=== PATIENT | female | born 1955 | race Caucasian/White ===

== ENCOUNTER 2023-06-10 23:01 | Emergency (ER) | payer BC ==
[2023-06-10 23:15] VITALS: TEMP 97.9
[2023-06-11] MEDS ORDERED: MORPHINE SULFATE 4 MG/ML SYRINGE IM STA (00:18)
[2023-06-11] MEDS ORDERED: MORPHINE SULFATE 2 MG/ML SYRINGE IM ONE (00:35)
--- NOTE | 2023-06-11 01:13 | XR ---
EXAM: XR Right Wrist Complete, 3 Views CLINICAL HISTORY: ITS.REASON XR Reason: pain s/p fall r/o fx TECHNIQUE: Frontal, lateral and oblique views of the right wrist. COMPARISON: No relevant prior studies available. FINDINGS: Bones/joints: Comminuted fracture of distal metaphysis and epiphysis of radius, extending to articular surface with mild impaction and moderate volar apex angulation. Largest fracture fragment is dorsally displaced by about 1 cm. Ulnar styloid is fractured with 3 mm distal displacement. 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 Soft tissues: Associates soft tissue swelling without gas. No radiopaque foreign body. IMPRESSION: 1. Comminuted fracture of distal metaphysis and epiphysis of radius, extending to articular surface with mild impaction and moderate volar apex angulation. 2. Ulnar styloid is fractured with 3 mm distal displacement.
--- NOTE | 2023-06-11 01:16 | ED ---
General Adult HPI - General Source: patient Mode of arrival: ambulatory Limitations: no limitations <Houston Montalvo - Last Filed: 06/11/23 01:26> <Dc Joel - Last Filed: 06/11/23 01:31> - General Chief complaint: Extremity Injury, Upper Stated complaint: Right wrist injury,fall Time Seen by Provider: 06/10/23 23:36 - History of Present Illness Initial comments: 67-year-old female presenting to the ED with a chief complaint of right wrist injury. Patient states that she was bending down to do a chore while in her barn when she states that she lost her balance and fell backwards. In the process, states that she attempted to catch herself with her right wrist and now notes pain of the right wrist. No head injury at this time. No other injuries at this time. Patient reports pain currently a 7 out of 10 in severity. No other complaints. (Houston Montalvo) - Related Data Previous Rx's Medication Instructions Recorded HYDROcodone/APAP 7.5-325MG [[place] 1 tab PO Q6HR PRN 3 Days #12 tab 06/11/23 7.5-325] Allergies Allergy/AdvReac Type Severity Reaction Status Date / Time No Known Allergies Allergy Verified 06/10/23 23:10 Review of Systems ROS Other: All systems not noted in ROS Statement are negative. <Houston Montalvo - Last Filed: 06/11/23 01:26> ROS Other: All systems not noted in ROS Statement are negative. <Dc Joel - Last Filed: 06/11/23 01:31> ROS Statement: Those systems with pertinent positive or pertinent negative responses have been documented in the HPI. Past Medical History Past Medical History: No Reported History History of Any Multi-Drug Resistant Organisms: None Reported Past Surgical History: No Surgical Hx Reported Past Psychological History: No Psychological Hx Reported Smoking Status: Current every day smoker Past Alcohol Use History: Occasional Past Drug Use History: None Reported <Huoston Montalvo - Last Filed: 06/11/23 01:26> General Exam Limitations: no limitations General appearance: alert, in no apparent distress Eye exam: Present: normal appearance Neck exam: Present: normal inspection Respiratory exam: Present: normal lung sounds bilaterally Cardiovascular Exam: Present: normal rhythm, tachycardia GI/Abdominal exam: Present: soft Extremities exam: Present: other (Obvious deformity of right upper extremity at the wrist with step-off. Radial pulses 2+. Sensation at the fingertips intact. Able to flex and extend fingers with no difficulties.) Neurological exam: Present: alert, oriented X3 Skin exam: Present: warm, dry <Houston Montalvo - Last Filed: 06/11/23 01:26> Course Vital Signs 06/10/23 23:08 Temperature 97.9 F Pulse Rate 108 H Respiratory 20 Rate Blood Pressure 154/98 O2 Sat by Pulse 94 L Oximetry Procedures - Orthopedic Splinting/Casting Injury #1 Side: right Upper Extremity Injury Location: wrist Upper Extremity Immobilizer: volar splint <Houston Montalvo - Last Filed: 06/11/23 01:26> - Orthopedic Fracture Reduction Fracture #1 Consent Obtained: verbal consent Side: right Fracture Reduction Location: radius Analgesia: none Technique: direct manipulation, traction/counter-traction Post-Reduction Neuro Exam: intact Post-Reduction Vascular Exam: intact Splint Applied: Yes Patient Tolerated Procedure: well <WisamDc - Last Filed: 06/11/23 01:31> - Orthopedic Splinting/Casting Injury #1 Additional Comments: Neurovascular intact after splint placement with good capillary refill and sensation. Able to move fingers without difficulties. (Houston Montalvo) Medical Decision Making <Houston Montalvo - Last Filed: 06/11/23 01:26> - Medical Decision Making Was pt. sent in by a medical professional or institution (, PA, CLEANING CREW MEMBER, urgent care, hospital, or shelter...) When possible be specific @ -No Did you speak to anyone other than the patient for history (EMS, parent, family, police, friend...)? What history was obtained from this source @ -No Did you review nursing and triage notes (agree or disagree)? Why? @ -I reviewed and agree with nursing and triage notes Were old charts reviewed (outside hosp., previous admission, EMS record, old EKG, old radiological studies, urgent care reports/EKG's, shelter records)? Report findings @ -No old charts were reviewed Differential Diagnosis (chest pain, altered mental status, abdominal pain women, abdominal pain men, vaginal bleeding, weakness, fever, dyspnea, syncope, headache, dizziness, GI bleed, back pain, seizure, CVA, palpatations, mental health, musculoskeletal)? @ -Differential Musculoskeletal Muscular strain, contusion, ligament sprain, fracture, arthritis, septic arthritis, bursitis, cellulitis, muscle spasm, nerve compression, DVT, arterial occlusion, herpes zoster, electrolyte abnormality, tumor.... This is not meant to be in all inclusive list EKG interpreted by me (3pts min.). @ -None X-rays interpreted by me (1pt min.). @ -X-ray of the right wrist interpreted by me showing impacted distal radius fracture. CT interpreted by me (1pt min.). @ -None done U/S interpreted by me (1pt. min.). @ -None done What testing was considered but not performed or refused? (CT, X-rays, U/S, labs)? Why? @ -None What meds were considered but not given or refused? Why? @ -None Did you discuss the management of the patient with other professionals (professionals i.e. , PA, CLEANING CREW MEMBER, lab, RT, psych nurse, social economist, magnetizer, teacher, sewage reticulation drafting officer, director of casework)? Give summary @ -No Was smoking cessation discussed for >3mins.? @ -No Was critical care preformed (if so, how long)? @ -No Were there social determinants of health that impacted care today? How? (Homelessness, low income, unemployed, alcoholism, drug addiction, transportation, low edu. Level, literacy, decrease access to med. care, longterm, rehab)? @ -No Was there de-escalation of care discussed even if they declined (Discuss DNR or withdrawal of care, Hospice)? DNR status @ -No What co-morbidities impacted this encounter? (DM, HTN, Smoking, COPD, CAD, Cancer, CVA, ARF, Chemo, Hep., AIDS, mental health diagnosis, sleep apnea, morbid obesity)? @ -None Was patient admitted / discharged? Hospital course, mention meds given and route, prescriptions, significant lab abnormalities, going to OR and other pertinent info. @ -Discharge 67-year-old female presenting status post mechanical fall now with right wrist pain. X-ray did show fracture of the distal radius. Splint was placed. Patient neurovascularly intact after splint placement. Patient discharged home with starter pack of [place] and prescription of [place]wood with referral to see orthopedics. Discharged home in stable condition. Discussed return precautions with patient who verbalized agreement. Undiagnosed new problem with uncertain prognosis? @ -No Drug Therapy requiring intensive monitoring for toxicity (Heparin, Nitro, Insulin, Cardizem)? @ -No Were any procedures done? @ -No Diagnosis/symptom? @ -Distal radius fracture, right Acute, or Chronic, or Acute on Chronic? @ -Acute Uncomplicated (without systemic symptoms) or Complicated (systemic symptoms)? @ -Uncomplicated Side effects of treatment? @ -No Exacerbation, Progression, or Severe Exacerbation? @ -No Poses a threat to life or bodily function? How? (Chest pain, [place], [place], pneumonia, PE, COPD, DKA, ARF, appy, cholecystitis, CVA, Diverticulitis, Homicidal, Suicidal, threat to staff... and all critical care pts) @ -No (Houston Montalvo) Disposition Is patient prescribed a controlled substance at d/c from ED?: Yes When asked, does pt state using other controlled substances?: No If prescribed controlled substance>3 days was MAPS reviewed?: Prescribed <3 Days Time of Disposition: 01:25 <Houston Montalvo - Last Filed: 06/11/23 01:26> <Dc Joel - Last Filed: 06/11/23 01:31> Clinical Impression: Right wrist fracture Disposition: HOME SELF-CARE Condition: Good Instructions (If sedation given, give patient instructions): Wrist Fracture in Adults (ED) Prescriptions: HYDROcodone/APAP 7.5-325MG [[place] 7.5-325] 1 tab PO Q6HR PRN 3 Days #12 tab PRN Reason: Pain Referrals: Kyrie Martines MD [Primary Care Provider] - 1-2 days
[2023-06-11] MEDS ORDERED: ACET/COD 300 MG/30 MG STARTER PACK 6 TAB BTL PO STA (01:27)
[2023-06-11 01:53] VITALS: BP 123/78; PULSE 80; RESP 16
== END 2023-06-11 01:51 | disposition home or self-care (01) ==
LOC: EC 23:01
DX: S52.501A Unspecified fracture of the lower end of right radius, initial encounter for closed fracture (principal); S52.611A Displaced fracture of right ulna styloid process, initial encounter for closed fracture; F17.200 Nicotine dependence, unspecified, uncomplicated; W19.XXXA Unspecified fall, initial encounter
CPT/HCPCS: 73110; 25605; 99284; 96372 ×2; J2270 ×2

== ENCOUNTER → 2023-06-16 | Outpatient (CLI) | payer BC ==
--- NOTE | 2023-06-16 09:55 | CT ---
EXAMINATION TYPE: CT wrist RT wo con DATE OF EXAM: 06/16/2023 COMPARISON: Radiograph 06/11/2023 HISTORY: 67-year-old female S52.571A FX RIGHT RADIUS, Fall, pre op TECHNIQUE: Contiguous axial scanning of the right wrist without IV contrast. Coronal and sagittal rec onstructions performed. 3-D reconstructions generated on a dedicated independent workstation. CT DLP: 99.5 mGycm Automated exposure control for dose reduction was used. FINDINGS: Severely comminuted fractured distal radial metaphysis and epiphysis with intra-articular extension i nto both radiocarpal and distal radioulnar joints. A bony gap and secondary articular surface disruption within the mid radial articular surface of the radiocarpal joint measures up to 6 mm AP and 8 mm wide. There is impaction of up to 7 mm and displacement of fragments up to 6 mm especially along the volar aspect. Secondary mild dorsal angulation. Additional nondisplaced fracture through the base of the ulnar styloid process. There is some cystic change at the ulnar proximal aspect of the lunate bone that may reflect underlyi ng ulnar impaction syndrome. Congenital carpal coalition of the hamate, capitate, and trapezoid bones. Moderate degenerative change first CMC joint and mild at the triscaphe joint. IMPRESSION: 1. SEVERELY COMMINUTED FRACTURE DISTAL RADIAL METAPHYSIS AND EPIPHYSIS. INTRA-ARTICULAR EXTENSION INT O BOTH RADIOCARPAL AND DISTAL RADIAL ULNAR JOINTS. 7 MM OF IMPACTION. DISPLACEMENT OF FRAGMENTS UP TO 6 MM ESPECIALLY AT THE VOLAR ASPECT. SECONDARY MILD DORSAL ANGULATION. 2. DISRUPTION OF THE MID RADIOCARPAL ARTICULAR SURFACE SECONDARY TO A BONY GAP MEASURING 8 X 6 MM. 3. ADDITIONAL NONDISPLACED FRACTURE THROUGH THE BASE OF THE ULNAR STYLOID PROCESS. 4. 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 5. CONGENITAL CARPAL COALITION INVOLVING THE TRAPEZOID, CAPITATE, AND HAMATE BONES. 6. 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
== END | disposition home or self-care (01) ==
LOC: RADCTMAIN 09:03
PROVIDERS: ATTEND Orthopaedic Surgery Hand Surgery
DX: S52.121A Displaced fracture of head of right radius, initial encounter for closed fracture (principal); S52.614A Nondisplaced fracture of right ulna styloid process, initial encounter for closed fracture; M19.041 Primary osteoarthritis, right hand

== ENCOUNTER 2023-07-22 21:17 | Inpatient (IN) | payer BC, MEDICARE ==
--- NOTE | 2023-07-22 21:51 | ED ---
General Adult HPI - General Chief complaint: Abdominal Pain Stated complaint: abd pain Time Seen by Provider: 07/22/23 21:26 Source: patient, RN notes reviewed, old records reviewed Mode of arrival: ambulatory Limitations: no limitations - History of Present Illness Initial comments: 68-year-old female presenting with lower abdominal pain. Pain began abruptly just prior to arrival. Patient states that several weeks ago she had a similar pain which resolved without treatment or evaluation. She denied dysuria. She states she was able to empty her bladder completely. No fever. No vomiting. She states she had a normal bowel movement. - Related Data Previous Rx's Medication Instructions Recorded HYDROcodone/APAP 7.5-325MG [[place] 1 tab PO Q6HR PRN 3 Days #12 tab 06/11/23 7.5-325] Allergies Allergy/AdvReac Type Severity Reaction Status Date / Time No Known Allergies Allergy Verified 06/10/23 23:10 Review of Systems ROS Statement: Those systems with pertinent positive or pertinent negative responses have been documented in the HPI. ROS Other: All systems not noted in ROS Statement are negative. Past Medical History Past Medical History: No Reported History History of Any Multi-Drug Resistant Organisms: None Reported Past Surgical History: No Surgical Hx Reported Past Psychological History: No Psychological Hx Reported Smoking Status: Current every day smoker Past Alcohol Use History: Occasional Past Drug Use History: None Reported General Exam Limitations: no limitations General appearance: alert, in no apparent distress Head exam: Present: atraumatic, normocephalic Eye exam: Present: normal appearance, PERRL ENT exam: Present: normal exam Neck exam: Present: normal inspection. Absent: tenderness, meningismus Respiratory exam: Present: normal lung sounds bilaterally, respiratory distress Cardiovascular Exam: Present: regular rate, normal rhythm GI/Abdominal exam: Present: distended, tenderness (Bilateral lower and suprapubic tenderness) Neurological exam: Present: alert, oriented X3, CN II-XII intact. Absent: motor sensory deficit Psychiatric exam: Present: normal affect, normal mood Skin exam: Present: warm, dry, intact. Absent: cyanosis, diaphoretic Course Vital Signs 07/22/23 07/23/23 07/23/23 21:18 00:08 01:38 Temperature 97.5 F L Pulse Rate 89 108 H 118 H Respiratory 18 18 18 Rate Blood Pressure 138/85 129/77 128/82 O2 Sat by Pulse 97 95 95 Oximetry Medical Decision Making - Medical Decision Making Was pt. sent in by a medical professional or institution (SHANNA Omer, ULTRASONIC HAND SOLDERER, urgent care, hospital, or [facility]...) When possible be specific @ -No Did you speak to anyone other than the patient for history (EMS, parent, family, police, friend...)? What history was obtained from this source @Patient's daughter Did you review nursing and triage notes (agree or disagree)? Why? @ -I reviewed and agree with nursing and triage notes Were old charts reviewed (outside hosp., previous admission, EMS record, old EKG, old radiological studies, urgent care reports/EKG's, [facility] records)? Report findings @ -No old charts were reviewed Differential Diagnosis (chest pain, altered mental status, abdominal pain women, abdominal pain men, vaginal bleeding, weakness, fever, dyspnea, syncope, headache, dizziness, GI bleed, back pain, seizure, CVA, palpatations, mental health, musculoskeletal)? @Differential Abdominal Pain Women: Appendicitis, Cholecystitis, diverticulosis, ischemic bowel, pancreatitis, hepatitis, UTI, gastroenteritis, AAA, incarcerated hernia, bowel obstruction, constipation, inflammatory bowel, hepatitis, peptic ulcer disease, splenic infarction, perforated viscus, vulvitis, ovarian torsion, PID, kidney stone, placenta abruption, this is not meant to be an all-inclusive list EKG interpreted by me (3pts min.). @ -As above X-rays interpreted by me (1pt min.). @ -None done CT interpreted by me (1pt min.). @CT shows large cystic and solid mass measuring 30 x 20 x 16, filling the abdo men and pelvis. U/S interpreted by me (1pt. min.). @ -None done What testing was considered but not performed or refused? (CT, X-rays, U/S, labs)? Why? @ -None What meds were considered but not given or refused? Why? @ -None Did you discuss the management of the patient with other professionals ( professionals i.e. SHANNA Omer, ULTRASONIC HAND SOLDERER, lab, RT, psych nurse, manager social services, occupational therapist, teacher, safety and security officer, case worker)? Give summary @ -No Was smoking cessation discussed for >3mins.? @ -No Was critical care preformed (if so, how long)? @ -No Were there social determinants of health that impacted care today? How? (Homelessness, low income, unemployed, alcoholism, drug addiction, transportation, low edu. Level, literacy, decrease access to med. care, care home, rehab)? @ -No Was there de-escalation of care discussed even if they declined (Discuss DNR or withdrawal of care, Hospice)? DNR status @ -No What co-morbidities impacted this encounter? (DM, HTN, Smoking, COPD, CAD, Cancer, CVA, ARF, Chemo, Hep., AIDS, mental health diagnosis, sleep apnea, morbid obesity)? @ -None Was patient admitted / discharged? Hospital course, mention meds given and route, prescriptions, significant lab abnormalities, going to OR and other pertinent info. @ -68-year-old female with lower abdominal pain. On exam patient is diffusely distended and tender to palpation. Workup initiated, she has a leukocytosis, stable hemoglobin, normal electrolytes. Urinalysis is unremarkable without signs of infection or hematuria. CT is ordered and shows a large intra- abdominal and intrapelvic mass with both cystic and solid components. Patient has persistent pain requiring multiple doses of medication. She will be admitted for intractable abdominal pain and associated abdominal and pelvic mass. Gynecology has been placed on consult for evaluation. Admitted to internal medicine. Undiagnosed new problem with uncertain prognosis? @ -No Drug Therapy requiring intensive monitoring for toxicity (Heparin, Nitro, Insulin, Cardizem)? @ -No Were any procedures done? @ -No Diagnosis/symptom? @ -Intra-abdominal and pelvic mass, intractable abdominal pain. Acute, or Chronic, or Acute on Chronic? @ -[Acute Uncomplicated (without systemic symptoms) or Complicated (systemic symptoms)? @Complicated Side effects of treatment? @ -No Exacerbation, Progression, or Severe Exacerbation? @ -No Poses a threat to life or bodily function? How? (Chest pain, [place], [place], pneumonia, PE, COPD, DKA, ARF, appy, cholecystitis, CVA, Diverticulitis, Homicidal, Suicidal, threat to staff... and all critical care pts) @ -[Yes, intra-abdominal malignancy. - Lab Data Result diagrams: 07/22/23 22:02 07/22/23 22:02 Lab Results 03/09/24 03/09/24 03/09/24 Range/Units 22:02 22:02 22:02 WBC 15.1 H (3.8-10.6) k/uL RBC 4.92 (3.80-5.40) m/uL Hgb 15.1 (11.4-16.0) gm/dL Hct 46.8 H (34.0-46.0) % MCV 95.2 (80.0-100.0) fL MCH 30.7 (25.0-35.0) pg MCHC 32.3 (31.0-37.0) g/dL RDW 12.8 (11.5-15.5) % Plt Count 216 (150-450) k/uL MPV 9.3 Neutrophils % 83 % Lymphocytes % 11 % Monocytes % 3 % Eosinophils % 1 % Basophils % 0 % Neutrophils # 12.6 H (1.3-7.7) k/uL Lymphocytes # 1.7 (1.0-4.8) k/uL Monocytes # 0.4 (0-1.0) k/uL Eosinophils # 0.2 (0-0.7) k/uL Basophils # 0.1 (0-0.2) k/uL Sodium 139 (137-145) mmol/L Potassium 4.2 (3.5-5.1) mmol/L Chloride 107 (98-107) mmol/L Carbon Dioxide 22 (22-30) mmol/L Anion Gap 10 mmol/L BUN 12 (7-17) mg/dL Creatinine 0.69 (0.52-1.04) mg/dL Est GFR (CKD-EPI)AfAm >90 (>60 ml/min/1.73 sqM) Est GFR (CKD-EPI)NonAf >90 (>60 ml/min/1.73 sqM) Glucose 114 H (74-99) mg/dL Lactic Ac Sepsis Rflx Plasma Lactic Acid Derrick (0.7-2.0) mmol/L Calcium 9.6 (8.4-10.2) mg/dL Total Bilirubin 0.4 (0.2-1.3) mg/dL AST 23 (14-36) U/L ALT 16 (4-34) U/L Alkaline Phosphatase 93 (38-126) U/L Total Protein 6.9 (6.3-8.2) g/dL Albumin 4.2 (3.5-5.0) g/dL Amylase 65 (30-110) U/L Lipase 104 (23-300) U/L Urine Color Colorless Urine Appearance Clear (Clear) Urine pH 5.5 (5.0-8.0) Ur Specific [place] 1.007 (1.001-1.035) Urine Protein Negative (Negative) Urine Glucose (UA) Negative (Negative) Urine Ketones Negative (Negative) Urine Blood Negative (Negative) Urine Nitrite Negative (Negative) Urine Bilirubin Negative (Negative) Urine Urobilinogen <2.0 (<2.0) mg/dL Ur Leukocyte Esterase Negative (Negative) 07/22/23 07/22/23 Range/Units 22:02 22:58 WBC (3.8-10.6) k/uL RBC (3.80-5.40) m/uL Hgb (11.4-16.0) gm/dL Hct (34.0-46.0) % MCV (80.0-100.0) fL MCH (25.0-35.0) pg MCHC (31.0-37.0) g/dL RDW (11.5-15.5) % Plt Count (150-450) k/uL MPV Neutrophils % % Lymphocytes % % Monocytes % % Eosinophils % % Basophils % % Neutrophils # (1.3-7.7) k/uL Lymphocytes # (1.0-4.8) k/uL Monocytes # (0-1.0) k/uL Eosinophils # (0-0.7) k/uL Basophils # (0-0.2) k/uL Sodium (137-145) mmol/L Potassium (3.5-5.1) mmol/L Chloride (98-107) mmol/L Carbon Dioxide (22-30) mmol/L Anion Gap mmol/L BUN (7-17) mg/dL Creatinine (0.52-1.04) mg/dL Est GFR (CKD-EPI)AfAm (>60 ml/min/1.73 sqM) Est GFR (CKD-EPI)NonAf (>60 ml/min/1.73 sqM) Glucose (74-99) mg/dL Lactic Ac Sepsis Rflx Y Plasma Lactic Acid Derrick 2.1 H* (0.7-2.0) mmol/L Calcium (8.4-10.2) mg/dL Total Bilirubin (0.2-1.3) mg/dL AST (14-36) U/L ALT (4-34) U/L Alkaline Phosphatase (38-126) U/L Total Protein (6.3-8.2) g/dL Albumin (3.5-5.0) g/dL Amylase (30-110) U/L Lipase (23-300) U/L Urine Color Urine Appearance (Clear) Urine pH (5.0-8.0) Ur Specific [place] (1.001-1.035) Urine Protein (Negative) Urine Glucose (UA) (Negative) Urine Ketones (Negative) Urine Blood (Negative) Urine Nitrite (Negative) Urine Bilirubin (Negative) Urine Urobilinogen (<2.0) mg/dL Ur Leukocyte Esterase (Negative) Disposition Clinical Impression: Abdominal pain, Pelvic mass, Abdominal mass Disposition: ADMITTED IP TO THIS HOSP Condition: Stable Is patient prescribed a controlled substance at d/c from ED?: No Referrals: Kyrie Martines MD [Primary Care Provider] - 1-2 days Time of Disposition: 03:14
[2023-07-22] MEDS: MORPHINE SULFATE 2 MG/ML SYRINGE IVP STA (21:59)
[2023-07-22 22:13] LABS: Basophils # (A) 0.1 k/uL (0-0.2); Basophils % (A) 0 %; Eosinophils # (A) 0.2 k/uL (0-0.7); Eosinophils % (A) 1 %; HCT 46.8 % (34.0-46.0); HGB 15.1 gm/dL (11.4-16.0); Lymphocytes # (A) 1.7 k/uL (1.0-4.8); Lymphocytes % (A) 11 %; MCH 30.7 pg (25.0-35.0); MCHC 32.3 g/dL (31.0-37.0); MCV 95.2 fL (80.0-100.0); Mean Platelet Volume 9.3; Monocytes # (A) 0.4 k/uL (0-1.0); Monocytes % (A) 3 %; Neutrophils # (A) 12.6 k/uL (1.3-7.7); Neutrophils % (A) 83 %; Platelet Count 216 k/uL (150-450); RBC 4.92 m/uL (3.80-5.40); RDW 12.8 % (11.5-15.5); WBC 15.1 k/uL (3.8-10.6)
[2023-07-22 22:35] LABS: ALT 16 U/L (4-34); AST 23 U/L (14-36); African American GFR (CKD) >90 (>60 ml/min/1.73 sqM); Albumin 4.2 g/dL (3.5-5.0); Alkaline Phosphatase 93 U/L (38-126); Amylase 65 U/L (30-110); Anion Gap 10 mmol/L; Blood Urea Nitrogen 12 mg/dL (7-17); Calcium 9.6 mg/dL (8.4-10.2); Carbon Dioxide 22 mmol/L (22-30); Chloride 107 mmol/L (98-107); Glucose 114 mg/dL (74-99); Lipase 104 U/L (23-300); Non-African American GFR(CKD) >90 (>60 ml/min/1.73 sqM); Potassium 4.2 mmol/L (3.5-5.1); Sodium 139 mmol/L (137-145); Total Bilirubin 0.4 mg/dL (0.2-1.3); Total Protein 6.9 g/dL (6.3-8.2)
[2023-07-22 22:44] LABS: Appearance,Urine Clear (Clear); Bilirubin,Urine Negative (Negative); Blood,Urine Negative (Negative); Color,Urine Colorless; Glucose,Urine (UA) Negative (Negative); Ketones,Urine Negative (Negative); Leukocyte Esterase,Urine Negative (Negative); Nitrite,Urine Negative (Negative); PH, Urine 5.5 (5.0-8.0); Protein,Urine Negative (Negative); Specific Gravity,Urine 1.007 (1.001-1.035); Urobilinogen,Urine <2.0 mg/dL (<2.0)
[2023-07-23] MEDS: MORPHINE SULFATE 4 MG/ML SYRINGE IVP STA ×2 (00:09→01:39)
--- NOTE | 2023-07-23 00:52 | CT ---
EXAM: CT Abdomen and Pelvis With Intravenous Contrast CLINICAL HISTORY: ITS.REASON CT Reason: abdominal pain TECHNIQUE: Axial computed tomography images of the abdomen and pelvis with intravenous contrast. CTDI is 29.6 mGy and DLP is 1447.9 mGy-cm. This CT exam was performed using one or more of the following dose reduction techniques: automated exposure control, adjustment of the mA and/or kV according to patient size, and/or use of iterative reconstruction technique. COMPARISON: No relevant prior studies available. FINDINGS: Lung bases: Unremarkable. No mass. No consolidation. ABDOMEN: Liver: Hepatic steatosis. Gallbladder and bile ducts: Unremarkable. No calcified stones. No ductal dilation. Pancreas: Unremarkable. No mass. No ductal dilation. Spleen: Unremarkable. No splenomegaly. Adrenals: Unremarkable. No mass. Kidneys and ureters: Renal cysts. No hydronephrosis. Stomach and bowel: Unremarkable. No mucosal thickening. No bowel obstruction. No free air. PELVIS: Appendix: No findings to suggest acute appendicitis. Bladder: Unremarkable. No mass. Reproductive: Large multilobulated cystic and solid mass throughout the abdomen and pelvis, which measures 30.7 x 22.2 x 16.8 cm. Findings are concerning for a large ovarian tumor. Gynecology/oncology evaluation recommended. ABDOMEN and PELVIS: Intraperitoneal space: See above. Bones/joints: No acute fracture. No dislocation. Soft tissues: Unremarkable. Vasculature: Unremarkable. No abdominal aortic aneurysm. Lymph nodes: Unremarkable. No enlarged lymph nodes. IMPRESSION: Large multilobulated cystic and solid mass throughout the abdomen and pelvis, which measures 30.7 x 22.2 x 16.8 cm. Findings are concerning for a large ovarian tumor. Gynecology/oncology evaluation recommended.
[2023-07-23] MEDS ORDERED: NALOXONE 0.4 MG/ML 1 ML VIAL IV PRN (03:06)
[2023-07-23] MEDS ORDERED: ACETAMINOPHEN TAB 325 MG TAB PO PRN (03:06)
[2023-07-23] MEDS: SODIUM CHLORIDE 0.9% 1,000 ML IV SCH (04:12)
[2023-07-23] MEDS: HYDROmorphone 1 MG/ML 1 ML SYRINGE IVP PRN (04:13)
[2023-07-23] MEDS ORDERED: KETOROLAC 15 MG/ML 1 ML VIAL IVP PRN (10:38)
[2023-07-23] MEDS: HYDROmorphone 0.5 MG/0.5 ML SYRINGE IVP PRN (11:07)
[2023-07-23] MEDS: FAMOTIDINE 20 MG/2 ML VIAL IV SCH (11:08)
--- NOTE | 2023-07-23 11:12 | P.HPIM ---
History of Present Illness 68-year-old female came in with diffuse predominantly bilateral lower abdominal pain and patient's abdomen has been increasing in size along with pain which is significant when she moves around. Patient had a CT of the abdomen in ER which showed a large multilobulated cystic and solid mass throughout the abdomen measuring about 30.7 x 22.7 x 16.8 concerning for large ovarian tumor gynecology was consulted and patient was started on pain medications and GI prophylaxis and was subsequently admitted for further evaluation. REVIEW OF SYSTEMS: CONSTITUTIONAL: No fever, no malaise, no fatigue. HEENT: No recent visual problems or hearing problems. Denied any sore throat. CARDIOVASCULAR: No chest pain, orthopnea, PND, no palpitations, no syncope. PULMONARY: No shortness of breath, no cough, no hemoptysis. GASTROINTESTINAL: No diarrhea, no nausea, no vomiting, NEUROLOGICAL: No headaches, no weakness, no numbness. HEMATOLOGICAL: Denies any bleeding or petechiae. GENITOURINARY: Denies any burning micturition, frequency, or urgency. MUSCULOSKELETAL/RHEUMATOLOGICAL: Denies any joint pain, swelling, or any muscle pain. ENDOCRINE: Denies any polyuria or polydipsia. The rest of the 14-point review of systems is negative. PHYSICAL EXAMINATION: GENERAL: The patient is alert and oriented x3, not in any acute distress. Well developed, well nourished. HEENT: Pupils are round and equally reacting to light. EOMI. No scleral icterus. No conjunctival pallor. Normocephalic, atraumatic. No pharyngeal erythema. No thyromegaly. CARDIOVASCULAR: S1 and S2 present. No murmurs, rubs, or gallops. PULMONARY: Chest is clear to auscultation, no wheezing or crackles. ABDOMEN: Distended abdomen normoactive bowel sounds. No palpable organomegaly. MUSCULOSKELETAL: No joint swelling or deformity. EXTREMITIES: No cyanosis, clubbing, or pedal edema. NEUROLOGICAL: Gross neurological examination did not reveal any focal deficits. SKIN: No rashes. Assessment and plan -Complex ovarian cyst: Concerning for ovarian cancer [employer]PER[employer]OR [employer]RICATION oncology was consulted and patient is on Toradol, Pepcid and Dilaudid for pain patient has severe pain -Leukocytosis reactive there is no evidence of infection clinically biochemically or radiologically. DVT prophylaxis: Lovenox Past Medical History Past Medical History: No Reported History History of Any Multi-Drug Resistant Organisms: None Reported Past Surgical History: No Surgical Hx Reported, Orthopedic Surgery Additional Past Surgical History / Comment(s): Fracture R Wrist Ortho Sx 06.21.2023 ([facility]o [facility]oc) Past Psychological History: No Psychological Hx Reported Smoking Status: Current every day smoker Past Alcohol Use History: Occasional Past Drug Use History: None Reported Medications and Allergies Home Medications Medication Instructions Recorded Confirmed Type HYDROcodone/APAP 7.5-325MG [Arco 1 tab PO Q6HR PRN 3 Days #12 tab 06/11/23 Rx 7.5-325] Allergies Allergy/AdvReac Type Severity Reaction Status Date / Time No Known Allergies Allergy Verified 06/10/23 23:10 Physical Exam Vitals: Vital Signs Temp Pulse Pulse Resp BP BP Pulse Ox 07/23/23 07:15 98.6 F 114 H 18 128/78 91 L 07/23/23 04:26 98.0 F 20 136/78 92 L 07/23/23 01:38 118 H 18 128/82 95 07/23/23 00:08 108 H 18 129/77 95 07/22/23 21:18 97.5 F L 89 18 138/85 97 Intake and Output 07/22/23 07/23/23 07/23/23 21:59 06:59 14:59 Intake Total Output Total Balance Intake: Intake, IV Titration Amount Sodium Chloride 0.9% 1, 000 ml @ 75 mls/hr IV . [id number] [facility] Rx#:[id number] Oral Output: Urine Other: # Voids Weight Results CBC & Chem 7: 07/22/23 22:02 07/22/23 22:02 Labs: Abnormal Lab Results - Last 24 Hours (Table) 07/22/23 07/22/23 07/22/23 Range/Units 22:02 22:02 22:02 WBC 15.1 H (3.8-10.6) k/uL Hct 46.8 H (34.0-46.0) % Neutrophils # 12.6 H (1.3-7.7) k/uL Glucose 114 H (74-99) mg/dL Plasma Lactic Acid Derrick 2.1 H* (0.7-2.0) mmol/L
--- NOTE | 2023-07-23 11:46 | P.OBCN ---
History of Present Illness Consult date: 07/23/23 Reason for consult: pelvic mass Chief complaint: Abdominal pain History of present illness: This a 68-year-old 3 para 3 woman with a 24-hour history of severe abdominal and pelvic pain presented to the emergency room. She was found on CT imaging to have a 30 x 22 x 17 cm mass of probable ovarian origin. The patient states she has noticed some increase in abdominal girth however thought she was just gaining weight from having been off of work for a month secondary to a right wrist fracture. She denies vaginal bleeding or discharge. She denies any changes in bowel habits however has had some dribbling and sensation of incomplete emptying of the bladder. Her pain is worse upon standing upright and she is having a difficult time with daily activities secondary to pain in the last 24 hours. Her last gynecologic. Evaluation was greater than 20 years ago however she has no known history of abnormal Pap smear, previous gynecologic diagnoses or surgery. She is a 3 para 3 with history of 3 vaginal deliveries and she went through menopause in her mid 50s. No history of postmenopausal bleeding. Recent medical history is significant for a injury at work with a fracture and repair of her right wrist. She is still in a brace for this. Review of Systems Constitutional: Reports fatigue, Denies chills, Denies fever, Denies weight gain, Denies weight loss Cardiovascular: Denies chest pain, Denies irregular heart beat, Denies shortness of breath Respiratory: Denies cough Gastrointestinal: Reports abdominal pain, Denies BRBPR, Denies change in bowel habits, Denies constipation, Denies diarrhea, Denies heartburn, Denies loss of appetite, Denies melena, Denies nausea, Denies vomiting Genitourinary: Reports difficulty voiding, Reports incomplete emptying, Denies abnormal vaginal bleeding, Denies dysuria, Denies hematuria, Denies vaginal discharge Menstruation: Reports postmenopausal Musculoskeletal: Reports low back pain Integumentary: Denies rash Neurological: Denies headaches, Denies syncope Hematologic/Lymphatic: Denies easy bleeding, Denies easy bruising Past Medical History Past Medical History: No Reported History History of Any Multi-Drug Resistant Organisms: None Reported Past Surgical History: Orthopedic Surgery Additional Past Surgical History / Comment(s): Fracture R Wrist Ortho Sx (ortho assoc) Past Psychological History: No Psychological Hx Reported Smoking Status: Current every day smoker Past Alcohol Use History: Occasional Past Drug Use History: None Reported Medications and Allergies Home Medications Medication Instructions Recorded Confirmed Type HYDROcodone/APAP 7.5-325MG [Handley 1 tab PO Q6HR PRN 3 Days #12 tab 06/11/23 Rx 7.5-325] Allergies Allergy/AdvReac Type Severity Reaction Status Date / Time No Known Allergies Allergy Verified 06/10/23 23:10 Exam Vital Signs Temp Pulse Pulse Resp BP BP Pulse Ox 07/23/23 07:15 98.6 F 114 H 18 128/78 91 L 07/23/23 04:26 98.0 F 20 136/78 92 L 07/23/23 01:38 118 H 18 128/82 95 07/23/23 00:08 108 H 18 129/77 95 07/22/23 21:18 97.5 F L 89 18 138/85 97 Intake and Output 07/22/23 07/23/23 07/23/23 21:59 06:59 14:59 Intake Total Output Total Balance Intake: Intake, IV Titration Amount Sodium Chloride 0.9% 1, 000 ml @ 75 mls/hr IV . [id number] [facility] Rx#:[id number] Oral Output: Urine Other: # Voids Weight This is a pleasant feel female appearing her stated age. HEENT exam is unremarkable. Her breathing is unlabored and her heart is a regular rate and rhythm. The abdomen is distended with a firm palpable mass extending from the pubic symphysis to the costal margin. This is moderately tender. She has no fluid wave or notable ascites. Bowel sounds are muffled but normal. Pelvic examination is deferred. She has no gross neurologic deficits. Results Result Diagrams: 07/22/23 22:02 07/22/23 22:02 Abnormal Lab Results - Last 24 Hours (Table) 07/22/23 07/22/23 07/22/23 Range/Units 22:02 22:02 22:02 WBC 15.1 H (3.8-10.6) k/uL Hct 46.8 H (34.0-46.0) % Neutrophils # 12.6 H (1.3-7.7) k/uL Glucose 114 H (74-99) mg/dL Plasma Lactic Acid Derrick 2.1 H* (0.7-2.0) mmol/L CT scan - abdomen: image reviewed CT scan - pelvis: image reviewed Assessment and Plan (1) Abdominal pain Current Visit: Yes Status: Acute Code(s): R10.9 - UNSPECIFIED ABDOMINAL PAIN SNOMED Code(s): 83911027 (2) Pelvic mass Current Visit: Yes Status: Acute Code(s): R19.00 - INTRA-ABD AND PELVIC SWELLING, MASS AND LUMP, UNSP SITE SNOMED Code(s): 61618187 Plan: 68-year-old 3 para 3 postmenopausal woman with 30 cm pelvic/abdominal mass. 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 Secondary to her pain and urinary symptoms she is not a good candidate for outpatient management. I reviewed the findings and need for surgery and further evaluation to the patient. I recommend transfer for BULK FOLDER oncology care. I have discussed the case with at [facility] who agrees to accept the patient in transfer. She was medically stable for transfer. Time with Patient: Greater than 30
[2023-07-24] MEDS: ENOXAPARIN 40 MG/0.4 ML SYRINGE SQ SCH (07:52)
--- NOTE | 2023-07-24 12:02 | XR ---
EXAMINATION TYPE: XR chest 2V DATE OF EXAM: 07/24/2023 COMPARISON: CT 07/22/2023 HISTORY: 68-year-old female hypoxia TECHNIQUE: AP and lateral views FINDINGS: Low lung volumes and crowded vascular markings. Perihilar and interstitial densities. Heart upper huerta its of normal in size. Activity bibasilar opacities. Trace effusions also noted. IMPRESSION: Perihilar and interstitial densities. Patchy bibasilar opacities. Trace effusions. Correlate to exclu de developing pulmonary vascular congestion.
[2023-07-24] MEDS ORDERED: ONDANSETRON 4 MG/2 ML VIAL IVP PRN (13:55)
--- NOTE | 2023-07-24 13:58 | P.PN ---
Subjective Progress Note Date: 07/24/23 68-year-old female came in with diffuse predominantly bilateral lower abdominal pain and patient's abdomen has been increasing in size along with pain which is significant when she moves around. Patient had a CT of the abdomen in ER which showed a large multilobulated cystic and solid mass throughout the abdomen measuring about 30.7 x 22.7 x 16.8 concerning for large ovarian tumor gynecology was consulted and patient was started on pain medications and GI prophylaxis and was subsequently admitted for further evaluation. 07/24/2023 Patient is seen in follow-up today on the medical floor. She continues to report significant lower abdominal pain and difficulty with taking a deep breath. She feels full and distended. She has been accepted at [facility] for transfer for further workup by SANDWICH WRAPPER oncology. Patient has been continued on IV fluids noted to have dropping her oxygen saturations of 91 to 90% chest x-ray was taken which reveals perihilar and interstitial densities with patchy bibasilar opacities. Trace effusions. Correlate to exclude developing pulmonary vascular congestion. Patient will be given a dose of IV Lasix today. No reported history of heart failure. Review of Systems Constitutional: Denied any fatigue denied any fever. Cardio vascular: denied any chest pain, palpitations Gastrointestinal: denied any nausea, vomiting, diarrhea Pulmonary: Reports shortness of breath, cough Neurologic denied any new focal deficits All inpatient medications were reviewed and appropriate changes in these medications as dictated in the interval history and assessment and plan. PHYSICAL EXAMINATION: GENERAL: The patient is alert and oriented x3, not in any acute distress. Well developed, well nourished. HEENT: Pupils are round and equally reacting to light. EOMI. No scleral icterus. No conjunctival pallor. Normocephalic, atraumatic. No pharyngeal erythema. No thyromegaly. CARDIOVASCULAR: S1 and S2 present. No murmurs, rubs, or gallops. PULMONARY: Chest is diminished ABDOMEN: Distended abdomen normoactive bowel sounds. No palpable organomegaly. MUSCULOSKELETAL: No joint swelling or deformity. EXTREMITIES: No cyanosis, clubbing, or pedal edema. NEUROLOGICAL: Gross neurological examination did not reveal any focal deficits. SKIN: No rashes. Assessment and plan -Complex ovarian cyst: Concerning for ovarian cancer DEPUTY SHERIFF GENERALIST oncology was consulted and patient is on Toradol, Pepcid and Dilaudid for pain patient has severe pain. Patient has been accepted at [facility] for transfer to tertiary care center for further evaluation by DEPUTY SHERIFF GENERALIST clinical nurse specialist for this complex ovarian mass. -Leukocytosis reactive there is no evidence of infection clinically biochemical ly or radiologically. -Vascular congestion no prior history of heart failure noted will check a proBNP if elevated -Chronic and ongoing nicotine use -Recent fracture of the right radius status post fall; currently wearing a support brace. Follows with orthopedics. DVT prophylaxis: Lovenox GI prophylaxis: Full Code Patient is currently awaiting a bed at [facility]. Continue supportive care with pain medications as above. Recommend repeat labs in the morning. Check a proBNP level patient will be given a one-time dose of IV Lasix 20 mg will be IV and IV fluids have been discontinued. Incentive spirometer has been ordered. The impression and plan of care has been dictated by Angie Nicole, Nurse Practitioner as directed. Dr. Negro MD I have performed a history and physical examination and medical decision making of this patient, discussed the same with the dictator, and agree with the dictators assessment and plan as written, documented as a scribe. Based on total visit time, I have performed more than 50% of this visit. Objective - Vital Signs Vital signs: Vital Signs Temp 98.4 F 07/24/23 12:32 Pulse 97 07/24/23 12:32 Resp 17 07/24/23 12:32 BP 133/81 07/24/23 12:32 Pulse Ox 90 L 07/24/23 12:32 FiO2 Intake & Output 07/23/23 07/24/23 07/24/23 18:59 06:59 18:59 Intake Total 900 Balance 900 Intake: Intake, IV Titration 900 Amount Sodium Chloride 0.9% 1, 900 000 ml @ 75 mls/hr IV . [id number] [facility] Rx#:[id number] Other: Voiding Method Toilet Toilet # Voids 2 - Labs CBC & Chem 7: 07/22/23 22:02 07/22/23 22:02 Assessment and Plan Time with Patient: Less than 30
[2023-07-24] MEDS: FUROSEMIDE 10 MG/ML 2 ML VIAL IV ONE (14:30)
--- NOTE | 2023-07-24 18:03 | P.CONS ---
History of Present Illness - Reason for Consult Consult date: 07/24/23 pelvic mass Requesting physician: Angie Nicole - Chief Complaint abd pain - History of Present Illness Mrs. Abarca is a 68-year-old female we have been asked to see because of abnormal findings on CT of the abdomen and pelvis. Patient states that her symptoms first started a few weeks ago. She noted some cramping pain in her lower abdomen associated with pressure. This progressed to abd distension affecting her ability to take a deep breath, it was affecting her appetite as well. She denied having any fevers, night sweats, nausea, vomiting. She denied any vaginal bleeding or discharge. She has no personal history of malignancy. She had a mother who around the age of 59 with colon cancer. She denies having a colonoscopy herself, she has not had MATE CHIEF exams in quite some time, she denies having a recent mammogram. She reports [address] of the abdomen and pelvis shows a mass that is 30.7 x 22.2 x 16.8. Review of Systems 10 point ROS is neg except as stated in HPI Past Medical History Past Medical History: No Reported History History of Any Multi-Drug Resistant Organisms: None Reported Past Surgical History: Orthopedic Surgery Additional Past Surgical History / Comment(s): Fracture R Wrist Ortho Sx 2.7.2023 (ortho assoc) Past Psychological History: No Psychological Hx Reported Smoking Status: Current every day smoker Past Alcohol Use History: Occasional Past Drug Use History: None Reported Medications and Allergies Home Medications Medication Instructions Recorded Confirmed Type Ergocalciferol (Vitamin D2) 1,250 mcg PO WEEKLY 07/23/23 07/23/23 History [Drisdol (50,000 Iu)] HYDROcodone/APAP 5-325MG [Riva 1 tab PO Q4HR PRN 07/23/23 07/23/23 History 5-325] Allergies Allergy/AdvReac Type Severity Reaction Status Date / Time No Known Allergies Allergy Verified 07/23/23 12:19 Physical Exam Vitals: Vital Signs Temp Pulse Resp BP Pulse Ox 07/24/23 12:32 98.4 F 97 17 133/81 90 L 07/24/23 07:46 98.3 F 79 17 150/86 91 L 07/24/23 02:00 98.6 F 90 16 122/74 91 L 07/23/23 19:18 98.7 F 97 16 109/67 91 L Intake and Output 07/23/23 07/24/23 07/24/23 22:59 06:59 14:59 Intake Total 900 Balance 900 Intake: Intake, IV Titration 900 Amount Sodium Chloride 0.9% 1, 900 000 ml @ 75 mls/hr IV . [id number] [facility] Rx#:[id number] Other: Voiding Method Toilet Toilet # Voids 2 - Constitutional General appearance: cooperative, mild distress, obese - EENT thick coating of the tongue Eyes: anicteric sclerae, EOMI ENT: hearing grossly normal - Neck Neck: no lymphadenopathy - Respiratory Respiratory: bilateral: CTA - Cardiovascular Rhythm: regular Heart sounds: normal: S1, S2 Abnormal Heart Sounds: no systolic murmur, no diastolic murmur, no rub, no S3 Gallop, no S4 Gallop, no click, no other leg Peripheral Edema: bilateral: None - Gastrointestinal General gastrointestinal: no absent bowel sounds, decreased bowel sounds, distended, no hepatomegaly, no hyperactive bowel sounds, no normal bowel sounds, no organomegaly, no rigid, no scaphoid, soft, no splenomegaly, tenderness, no umbilical hernia, no ventral hernia Localized gastrointestinal: tender: epigastric periumbilical, guarding: epigastric periumbilical, mass: epigastric periumbilical - Integumentary Integumentary: normal - Neurologic Neurologic: CNII-XII intact - Musculoskeletal Musculoskeletal: strength equal bilaterally - Psychiatric Psychiatric: A&O x's 3, appropriate affect, intact judgment & insight Results CBC & Chem 7: 07/22/23 22:02 07/22/23 22:02 CT scan - abdomen: report reviewed CT scan - pelvis: report reviewed Assessment and Plan (1) Abdominal pain Current Visit: Yes Status: Acute Priority: High Code(s): R10.9 - UNSPECIFIED ABDOMINAL PAIN SNOMED Code(s): 12047147 (2) Abdominal mass Current Visit: Yes Status: Acute Priority: Medium Code(s): R19.00 - INTRA- ABD AND PELVIC SWELLING, MASS AND LUMP, UNSP SITE SNOMED Code(s): 977013188 Plan: Abdominal mass, abdominal pain -Patient reports symptoms started within the last few weeks -Majority of cases with masses this large there typically benign but, there needs to be confirmation of the same. Since patient is symptomatic, agree with surgical evaluation for removal of the mass and pathology. -MATE CHIEF has evaluated patient, plans for transfer to MATE CHIEF oncology at [facility] in [place] are already in motion. Agree with the plan of care -Case discussed briefly with Attending HEALTHCARE ADMINISTRATOR -Patient denies colonoscopy, MATE CHIEF exam or mammograms Doctor attests: I performed a history and physical examination of this patient, developed impression and plan of care. Discussed with dictator. I agree with dictators note, documented as a scribe.
[2023-07-25 11:14] LABS: Basophils # (A) 0.04 X 10*3/uL (0.00-0.10); Basophils % (A) 0.3 %; Eosinophils # (A) 0.02 X 10*3/uL (0.04-0.35); Eosinophils % (A) 0.2 %; HCT 44.7 % (37.2-46.3); HGB 14.8 g/dL (12.0-15.0); Lymphocytes # (A) 1.01 X 10*3/uL (0.90-5.00); Lymphocytes % (A) 7.7 %; MCHC 33.1 g/dL (32.0-37.0); MCV 90.7 FL (80.0-97.0); Mean Platelet Volume 12.4 FL (9.5-12.2); Monocytes # (A) 0.73 X 10*3/uL (0.20-1.00); Monocytes % (A) 5.6 %; NRBC Per 100 WBC 0 X 10*3/uL (0.00-0.01); Neutrophils # (A) 11.27 X 10*3/uL (1.80-7.70); Neutrophils % (A) 85.8 %; Platelet Count 250 X 10*3/uL (140-440); RBC 4.93 X 10*6/uL (4.10-5.20); RDW 13.1 % (11.5-14.5); WBC 13.12 X 10*3/uL (4.50-10.00)
[2023-07-25 11:25] LABS: BUN/Creat Ratio 14.43 Ratio (12.00-20.00); Blood Urea Nitrogen 10.1 mg/dL (9.0-27.0); Calcium 9.2 mg/dL (8.7-10.3); Carbon Dioxide 21.2 mmol/L (21.6-31.8); Chloride 100 mmol/L (96-109); Glucose 109 mg/dL (70-110); Potassium 4.1 mmol/L (3.5-5.5); Sodium 137 mmol/L (135-145)
--- NOTE | 2023-07-25 16:44 | P.PN ---
Subjective Progress Note Date: 07/25/23 68-year-old female came in with diffuse predominantly bilateral lower abdominal pain and patient's abdomen has been increasing in size along with pain which is significant when she moves around. Patient had a CT of the abdomen in ER which showed a large multilobulated cystic and solid mass throughout the abdomen measuring about 30.7 x 22.7 x 16.8 concerning for large ovarian tumor gynecology was consulted and patient was started on pain medications and GI prophylaxis and was subsequently admitted for further evaluation. 07/24/2023 Patient is seen in follow-up today on the medical floor. She continues to report significant lower abdominal pain and difficulty with taking a deep breath. She feels full and distended. She has been accepted at [facility] for transfer for further workup by IT SECURITY ARCHITECT oncology. Patient has been continued on IV fluids noted to have dropping her oxygen saturations of 91 to 90% chest x-ray was taken which reveals perihilar and interstitial densities with patchy bibasilar opacities. Trace effusions. Correlate to exclude developing pulmonary vascular congestion. Patient will be given a dose of IV Lasix today. No reported history of heart failure. 07/25/2023 Patient is evaluated today in follow-up. She is pending bed at [facility] for GLASS SETTER oncological evaluation. Abdominal discomfort has improved somewhat. She reports not having a bowel movement since last Monday. She was given a dose of IV Lasix although her proBNP was not elevated. We will check an ech ocardiogram due to the mention of possible pulmonary vascular congestion on chest x-ray taken yesterday. Patient continued on supportive care. Review of Systems Constitutional: Denied any fatigue denied any fever. Cardio vascular: denied any chest pain, palpitations Gastrointestinal: denied any nausea, vomiting, diarrhea Pulmonary: Reports shortness of breath, cough Neurologic denied any new focal deficits All inpatient medications were reviewed and appropriate changes in these medications as dictated in the interval history and assessment and plan. PHYSICAL EXAMINATION: GENERAL: The patient is alert and oriented x3, not in any acute distress. Well developed, well nourished. HEENT: Pupils are round and equally reacting to light. EOMI. No scleral icterus. No conjunctival pallor. Normocephalic, atraumatic. No pharyngeal erythema. No thyromegaly. CARDIOVASCULAR: S1 and S2 present. No murmurs, rubs, or gallops. PULMONARY: Chest is diminished ABDOMEN: Distended abdomen normoactive bowel sounds. No palpable organomegaly. MUSCULOSKELETAL: No joint swelling or deformity. EXTREMITIES: No cyanosis, clubbing, or pedal edema. NEUROLOGICAL: Gross neurological examination did not reveal any focal deficits. SKIN: No rashes. Assessment and plan -Complex ovarian cyst: Concerning for ovarian cancer GLASS SETTER oncology was consulted and patient is on Toradol, Pepcid and Dilaudid for pain patient has severe pain. Patient has been accepted at [facility] for transfer to tertiary care center for further evaluation by GLASS SETTER triage specialist for this complex ovarian mass. -Leukocytosis reactive there is no evidence of infection clinically biochemically or radiologically. -Vascular congestion no prior history of heart failure, given a dose of IV lasix and echocardiogram ordered and pending. -Chronic and ongoing nicotine use -Recent fracture of the right radius status post fall; currently wearing a support brace. Follows with orthopedics. DVT prophylaxis: Lovenox GI prophylaxis: Full Code Patient is currently awaiting a bed at [facility]. Continue supportive care with pain medications as above. Recommend repeat labs in the morning. The impression and plan of care has been dictated by Angie Nicole Nurse Practitioner as directed. Dr. Negro MD I have performed a history and physical examination and medical decision making of this patient, discussed the same with the dictator, and agree with the dictators assessment and plan as written, documented as a scribe. Based on total visit time, I have performed more than 50% of this visit. Objective - Vital Signs Vital signs: Vital Signs Temp 98.8 F 07/25/23 12:39 Pulse 101 H 07/25/23 12:39 Resp 18 07/25/23 12:39 BP 113/78 07/25/23 12:39 Pulse Ox 93 L 07/25/23 12:39 FiO2 Intake & Output 07/24/23 07/25/23 07/25/23 18:59 06:59 18:59 Intake Total 100 Balance 100 Intake: Oral 100 Other: Voiding Method Toilet Toilet Toilet # Voids 4 2 - Labs CBC & Chem 7: 07/25/23 05:59 07/25/23 05:59 Labs: Abnormal Lab Results - Last 24 Hours (Table) 07/25/23 07/25/23 Range/Units 05:59 05:59 WBC 13.12 H (4.50-10.00) X 10*3/uL MPV 12.4 H (9.5-12.2) FL Immature Gran # 0.05 H (0.00-0.04) X 10*3/uL Neutrophils # 11.27 H (1.80-7.70) X 10*3/uL Eosinophils # 0.02 L (0.04-0.35) X 10*3/uL Carbon Dioxide 21.2 L (21.6-31.8) mmol/L Anion Gap 15.80 H (4.00-12.00) mmol/L Assessment and Plan Time with Patient: Less than 30
[2023-07-25] MEDS: polyethylene glycoL 3350 17 GM POWD.PACK PO SCH (18:06)
[2023-07-26 02:44] VITALS: RESP 16
[2023-07-26 08:49] LABS: BUN/Creat Ratio 17.17 Ratio (12.00-20.00); Blood Urea Nitrogen 10.3 mg/dL (9.0-27.0); Calcium 8.6 mg/dL (8.7-10.3); Carbon Dioxide 21.9 mmol/L (21.6-31.8); Chloride 102 mmol/L (96-109); Glucose 92 mg/dL (70-110); Potassium 4.1 mmol/L (3.5-5.5); Sodium 137 mmol/L (135-145)
--- NOTE | 2023-07-26 09:25 | CA ---
Transthoracic Echo Report Name: Rosemarie Abarca Age: 68 Gender: F : 1955 Exam Date: 07/25/2023 16:15 Exam Location: [facility] Ht (in): 66 Wt (lb): 170 Ordering Physician: Angie Nicole Attending/Referring Phys: Corey KUMARI Stockfeed Miller Sherri Shah RDCS Procedure CPT: Indications: chf Cardiac Hx: Technical Quality: Fair Contrast 1: Total Dose (mL): Contrast 2: Total Dose (mL): MEASUREMENTS (Male / Female) Normal Values 2D ECHO LV Diastolic Diameter PLAX 3.8 cm 4.2 - 5.9 / 3.9 - 5.3 cm LV Systolic Diameter PLAX 3.0 cm IVS Diastolic Thickness 0.9 cm 0.6 - 1.0 / 0.6 - 0.9 cm LVPW Diastolic Thickness 1.1 cm 0.6 - 1.0 / 0.6 - 0.9 cm LV Relative Wall Thickness 0.5 LA Volume 38.5 cm??? 18 - 58 / 22 - 52 cm??? LA Volume Index 20.1 cm???/m??? 16 - 28 cm???/m??? M-MODE Aortic Root Diameter MM 2.9 cm DOPPLER AV Peak Velocity 115.8 cm/s AV Peak Gradient 5.4 mmHg AV Mean Velocity 84.7 cm/s AV Mean Gradient 3.1 mmHg AV Velocity Time Integral 20.0 cm LVOT Peak Velocity 110.2 cm/s LVOT Peak Gradient 4.9 mmHg LVOT Velocity Time Integral 19.0 cm MV Area PHT 4.8 cm??? Mitral E Point Velocity 78.2 cm/s Mitral A Point Velocity 118.5 cm/s Mitral E to A Ratio 0.7 MV Deceleration Time 159.3 ms MV E' Velocity 8.1 cm/s Mitral E to MV E' Ratio 9.7 FINDINGS Left Ventricle Normal Left ventricular size, wall thickness, systolic function with no obvious regional wall motion abnormalities. Normal Left ventricular diastolic filling pattern. Left ventricular ejection fraction is estimated at 55-60 %. Right Ventricle Right ventricle not well visualized. Right Atrium Right atrium not well visualized. Left Atrium Normal left atrial size. Mitral Valve Structurally normal mitral valve. No mitral stenosis, regurgitation or prolapse. Aortic Valve No aortic valve stenosis or regurgitation. Tricuspid Valve Structurally normal tricuspid valve. Trace tricuspid regurgitation. Pulmonic Valve Pulmonic valve not well visualized. Pericardium No pericardial effusion. Aorta Normal size aortic root and proximal ascending aorta. CONCLUSIONS Normal LV systolic function Previewed by: Dr. Duane Hale MD (Electronically Signed) Final Date: 26 July 2023 09:24
[2023-07-26 13:25] VITALS: BP 121/83; PULSE 87; TEMP 98.3
--- NOTE | 2023-07-28 20:50 | P.DS ---
Providers Date of admission: 07/23/23 03:06 Attending physician: Sherwin Cordero Consults: 07/23/23 03:06 Consult Physician Routine Consulting Provider: Melida Son Consult Reason/Comments: Abdominal mass Do you want consulting provider notified?: Yes 07/23/23 10:37 Consult Physician Routine Consulting Provider: Darron Austin Consult Reason/Comments: Possible ovarain cancer Do you want consulting provider notified?: Yes Primary care physician: Kyrie Martines Hospital Course: Final Diagnosis -Complex ovarian cyst: Concerning for ovarian cancer [facility] oncology was consulted and recommending either transfer to [facility] or outpatient senior geologist onc follow up. -Leukocytosis reactive there is no evidence of infection clinically -Vascular congestion no prior history of heart failure, given a dose of IV lasix and echocardiogram reveals normal LV function. -Chronic and ongoing nicotine use -Recent fracture of the right radius status post fall; currently wearing a support brace. Follows with orthopedics. Discharge Disposition Patient stable for discharge and recommending to follow up with Custodial Manager Oncology outpatient, Dr. Bhatia out of [facility] will be contacting patient to set up an appointment in follow up. Patients abdominal pain has improved and not currently requiring and IV pain medications. Patient verbalizes the need for close follow up and agreeing to the plan of care. Patient to follow up with her PCP. Dr Kyrie Martines in 1 to 2 days. Hospital Course 68-year-old female came in with diffuse predominantly bilateral lower severe abdominal and pelvic pain presented to the emergency room. The patient states she has noticed some increase in abdominal girth however thought she was just gaining weight from having been off of work for a month secondary to a right wrist fracture. She denies vaginal bleeding or discharge. She denies any changes in bowel habits however has had some dribbling and sensation of incomplete emptying of the bladder. Her pain is worse upon standing upright and she is having a difficult time with daily activities secondary to pain in the last [address]. Patient had a CT of the abdomen in ER which showed a large multilobulated cystic and solid mass throughout the abdomen measuring about 30.7 x 22.7 x 16.8 concerning for large ovarian tumor gynecology was consulted and patient was started on pain medications and GI prophylaxis and was subsequently admitted for further evaluation. 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 Patient was initially recommend for transfer to [facility] for further evaluation however; her symptoms improved with pain management. Patient was pending insurance authorization for transfer although she did have a potential bed at [facility] and was accepted by Dr. Bhatia. Patient was noted to have low oxygen saturations 91% while on room air and did have IV fluids running. A chest xray taken reveals possible mild vascular congestion. Echocardiogram was done revealing normal LV systolic function. proBNP not elevated at 221. Urinalysis negative. Had WBC of 15 on admission. EKG reveals sinus tachycardia heart rate of [address] or T wave changes noted. As patient symptomatically was improving and had not yet received insurance authorization for transfer; follow up with gynecology done and patient was cleared for discharge. As above Dr. Chong office was contacted and they will be calling patient to set up a follow up appointment. Her white blood cell count has improved from 15.1 to 13.12. Renal function remains normal. No chest pain, no shortness of breath, no nausea vomiting or diarrhea. Lungs are clear, S1 S2 auscultated, abdomen is soft and nontender. Focal neurological exam is negative alert and oriented x 3. Please see medication reconciliation for a list of current medications. Thank you for allowing us to participate in the care of this patient. The impression and plan of care has been dictated by Angie Nicole, Nurse Practitioner as directed. Dr. Negro MD I have performed a history and physical examination and medical decision making of this patient, discussed the same with the dictator, and agree with the dictators assessment and plan as written, documented as a scribe. Based on total visit time, I have performed more than 50% of this visit. Patient Condition at Discharge: Fair Plan - Discharge Summary Discharge Rx Participant: No New Discharge Prescriptions: New Ibuprofen [Motrin] 600 mg PO Q6HR PRN #20 tab PRN Reason: Pain Famotidine [Pepcid] 20 mg PO DAILY #30 tablet traMADol HCl [Ultram] 50 mg PO Q6HR PRN 3 Days #12 tab PRN Reason: Pain Ondansetron [Zofran] 4 mg PO Q8HR PRN #12 tab PRN Reason: Nausea Continue Ergocalciferol (Vitamin D2) [Drisdol (50,000 Iu)] 1,250 mcg PO WEEKLY Discontinued HYDROcodone/APAP 5-325MG [Adkins 5-325] 1 tab PO Q4HR PRN PRN Reason: Pain Discharge Medication List Ergocalciferol (Vitamin D2) [Drisdol (50,000 Iu)] 1,250 mcg PO WEEKLY 07/23/23 [History] Famotidine [Pepcid] 20 mg PO DAILY #30 tablet 07/26/23 [Rx] Ibuprofen [Motrin] 600 mg PO Q6HR PRN #20 tab 07/26/23 [Rx] Ondansetron [Zofran] 4 mg PO Q8HR PRN #12 tab 07/26/23 [Rx] traMADol HCl [Ultram] 50 mg PO Q6HR PRN 3 Days #12 tab 07/26/23 [Rx] Follow up Appointment(s)/Referral(s): Kyrie Martines MD [Primary Care Provider] - 07/28/23 10:40 am Nicki Bhatia MD [REFERRING] - 1 Week (Office will be contacting you for an appointment Custodial Manager-audio visual specialist) Ambulatory/Diagnostic Orders: Basic Metabolic Panel [LAB.AMB] Location: None Selected Complete Blood Count w/diff [LAB.AMB] Time Frame: 3 Days, Location: None Selected Patient Instructions/Handouts: Abdominal Pain (GEN) Activity/Diet/Wound Care/Special Instructions: Dr. Bhatia's office will be contacting you for a new patient appointment. Please follow up with Dr. Martines in 1 to 2 days Repeat labs. Motrin for mild to moderate pain and tramadol has been given if motrin is ineffective. Return to the ER if abdominal pain comes back. Discharge Disposition: HOME SELF-CARE
== END 2023-07-26 17:31 | disposition home or self-care (01) | DRG 756 ==
LOC: EC 21:17 → 5NMEDONC 07-23 03:06
PROVIDERS: ADMIT Hospitalist; ATTEND Hospitalist
DX: C56.9 Malignant neoplasm of unspecified ovary (principal); S52.91XD Unspecified fracture of right forearm, subsequent encounter for closed fracture with routine healing; F17.210 Nicotine dependence, cigarettes, uncomplicated; Z91.81 History of falling
CPT/HCPCS: 36415; 71046; 74177; 80048; 80053; 81003; 82150; 83605; 83690; 83880; 85025; 93005; 93306; 96374; 96376; 99285

== ENCOUNTER → 2023-07-31 | Outpatient (CLI) | payer BC, MEDICARE | END | disposition home or self-care (01) | LOC: LABWHC1 10:44 | PROVIDERS: ATTEND Family Medicine | DX: R19.09 Other intra-abdominal and pelvic swelling, mass and lump (principal) | CPT/HCPCS: 36415; 86301; 86304 ==